=== PATIENT | female | born 1970 | race American Indian/Alaskan Native ===

== ENCOUNTER 2016-04-27 09:59 | Outpatient (CLI) | payer MEDICAID ==
--- NOTE | 2016-04-27 15:01 | Mammography Report ---
BILATERAL MAMMOGRAM: FINDINGS: The breasts are almost entirely fat (<25% glandular). No mass, distortion, suspicious calcification, or skin change is seen. No significant changes compared to studies dating back to 2015. CAD was utilized. IMPRESSION: Negative mammogram. There is no mammographic evidence of malignancy. RECOMMENDATION: Follow-up per ACS guidelines. BI-RADS CATEGORY: 1 = Negative ACR BI-RADS MAMMOGRAPHIC CODES: 0 = Needs additional imaging evaluation; 1 = Negative; 2 = Benign; 3 = Probably benign; 4 = Suspicious; 5 = Malignant; 6 = Known biopsy-proven malignancy COMMENT: 1. Dense breast tissue, i.e., adenosis, fibrocystic changes, etc., may obscure an underlying neoplasm. 2. Approximately 10% of cancers are not detected with mammography. 3. A negative mammography report should not delay biopsy if a clinically suspicious mass is present. COMMENT: Patient follow-up letters are generated in [employer].
== END 2016-04-27 10:00 | disposition home or self-care (01) ==
LOC: MAMMO 09:59
PROVIDERS: ATTEND Internal Medicine
DX: Z12.31 Encounter for screening mammogram for malignant neoplasm of breast (principal)
CPT/HCPCS: 77067; G0202

== ENCOUNTER 2017-04-29 13:34 | Outpatient (CLI) | payer MEDICAID ==
--- NOTE | 2017-04-30 05:40 | XRay Report ---
FINAL REPORT EXAM: XR SHOULDER 2+V RT HISTORY: PAIN IN KNEE TECHNIQUE: Three views of the right knee were submitted. FINDINGS: The glenohumeral and AC joints appear well maintained. The subacromial space appears normal. The soft tissues are unremarkable. IMPRESSION: No acute findings.
--- NOTE | 2017-04-30 05:41 | XRay Report ---
FINAL REPORT EXAM: XR KNEE BILAT 3V HISTORY: PAIN IN RIGHT SHOULDER TECHNIQUE: Three views of each knee were obtained. FINDINGS: In the right knee all 3 compartments appear normal. There is no evidence of fracture or joint effusion. Soft tissues appear normal. Three views of the left knee show all 3 compartments to be normal. Joint fluid is not seen. There is no evidence of fracture. The soft tissues are well maintained. IMPRESSION: Normal bilateral knees.
--- NOTE | 2017-04-30 16:10 | Mammography Report ---
BILATERAL DIGITAL SCREENING MAMMOGRAM with CAD: 04/29/17 13:34:00 CLINICAL: Routine screening. COMPARISON:04/27/16 FINDINGS: The breasts are heterogeneously dense, which may obscure small masses. No mass, architectural distortion or suspicious calcifications. IMPRESSION: No mammographic evidence of malignancy. BI-RADS CATEGORY: 1 - - Negative RECOMMENDATION: Routine mammographic screening in one year. COMMENT: Patient follow-up letters are generated by our [employer] application.
== END 2017-04-29 13:35 | disposition home or self-care (01) ==
LOC: MAMMO 13:34
PROVIDERS: ATTEND Internal Medicine
DX: Z12.31 Encounter for screening mammogram for malignant neoplasm of breast (principal); M25.511 Pain in right shoulder; M25.561 Pain in right knee; M25.562 Pain in left knee
CPT/HCPCS: 77067